=== PATIENT | female | born 1990 | race Hispanic/Latino ===

== ENCOUNTER 2023-10-22 08:50 | Emergency (ER) | payer OTHER, SELFPAY ==
[2023-10-22 08:52] VITALS: BP 147/87
--- NOTE | 2023-10-22 09:02 | ED.SKININJ ---
HPI-Injury
General
Chief Complaint: Skin Surface Trauma
Source: patient
Exam Limitations: none
Time Seen by Provider: 10/22/23 08:57
Travel History
Have you had any contact with someone who has COVID-19?: Unable to Answer
Do you have any symptoms of coronavirus? Fever > 100 degrees, chills, cough, shortness of breath, sore throat, loss of taste or smell, muscle aches, or headache?: Unable to Answer
History of Present Illness-Injury
Initial Injury comments:
33-year-old [id number] female presents with laceration to right long finger sustained at work. She states she pinched her finger on a truss. There was cut by a piece of metal. She denies numbness or tingling or loss of function. No
other complaints at this time.
Phy Exam
Physical Exam
Physical Exam:
General: Well-appearing female no acute respiratory distress
Skin: 2 cm flap type laceration volar distal portion right long finger without tendon involvement there is underlying ecchymosis and swelling
Musculoskeletal exam: Good range of motion at the DIP joint. The distal phalanx slightly tender without deformity
Course
Orders/Labs/Results
Orders:
Orders
10/22/23 09:01
CR Finger(s)/thumb Min 2 Vw Rt Urgent
Comment:
Reason For Exam: laceration/crush injury
Vital Signs
Initial and Last Documented VS:
Initial Vital Signs
Temp Pulse Resp BP Pulse Ox
99.3 F 66 16 147/87 99
10/22/23 08:52 10/22/23 08:52 10/22/23 08:52 10/22/23 08:52 10/22/23 08:52
Last Documented Vital Signs
Temp Pulse Resp BP Pulse Ox
99.3 F 66 16 147/87 99
10/22/23 08:52 10/22/23 08:52 10/22/23 08:52 10/22/23 08:52 10/22/23 08:52
Procedures
Laceration Closure
Right Distal Third Finger:
Status of Wound: clean
Description of Wound Edges: flap-poorly vascularized
Anesthesia: 1% Lidocaine
Revision/Debridement: minor revision
Wound exploration: explored to base- no FB and no tendon involvement
Type of Closure: single layer closure and interrupted sutures
Skin Closure Material: 5-0 prolene
Number of sutures: 8
MDM/Problems Addressed
Differential Diagnosis Includes:
Right finger laceration secondary to what sounds like crush injury. X-rays pending. Patient will require sutures
*Critical Care Note
Total Time (30-74mins, 75-104mins- exclusive of procedures): Not Applicable
Update Note
Update Note:
I personally visualized x-rays of the right long finger demonstrate a fracture of the distal portion of the distal phalanx. The finger was copiously irrigated with saline anesthetized in a local fashion 1% lidocaine and closed with 5-0 Prolene
sutures. Bacitracin gauze wrap and a finger splint was applied. She was started on antibiotics. 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
ED Attending Note
-
Portions of this chart may have been created with voice recognition software.� Occasional wrong word or��sound alike� substitutions may have occurred due to the inherent limitations of voice recognition software.
Discharge Plan
Departure
Patient Disposition: Home (Routine Discharge)
Date of Disposition: 10/22/23
Time of Disposition: 10:00
Patient with high blood pressure during this ER visit?: No
Discharge Problem:
Laceration, Finger fracture
Instructions: Laceration Repair With Stitches (DC)
Prescriptions:
New
cephalexin 500 mg capsule
500 mg PO Q8H 7 Days Qty: 21 0RF
Referrals:
Arturo Jesus MD [Active] -
Stand Alone Forms: Return to Work
Activity Restrictions/Additional Instructions:
Take antibiotics as directed. Use Tylenol or ibuprofen for pain. Have sutures removed in 2 weeks. Follow-up with orthopedics otherwise
Interventions
Interventions:
ED-Skin Assessment Last Done: 10/22/23 09:47
Discharge Date and Time
Print Language: OCCITAN
== END 2023-10-22 10:27 | disposition home or self-care (01) ==
LOC: EMR 08:50
PROVIDERS: EMERGENCY PHYSICIAN Emergency Medicine
DX: S62.632A Displaced fracture of distal phalanx of right middle finger, initial encounter for closed fracture (principal); S61.212A Laceration without foreign body of right middle finger without damage to nail, initial encounter; W23.0XXA Caught, crushed, jammed, or pinched between moving objects, initial encounter; Y93.89 Activity, other specified; Y92.89 Other specified places as the place of occurrence of the external cause; Y99.0 Civilian activity done for income or pay
CPT/HCPCS: 99283; 29130; 73140